=== PATIENT | female | born 1965 | race Caucasian/White ===

== ENCOUNTER 2020-09-16 16:19 | Emergency (ER) | payer OTHER ==
[~2020-09-16] VITALS: Ht 157.5 cm; Wt 93.0 kg
== END 2020-09-16 18:55 | disposition home or self-care (01) ==
LOC: ER 16:19
DX: S52.511A Displaced fracture of right radial styloid process, initial encounter for closed fracture (principal); S49.191A Other physeal fracture of lower end of humerus, right arm, initial encounter for closed fracture; S00.83XA Contusion of other part of head, initial encounter; W18.09XA Striking against other object with subsequent fall, initial encounter; Y93.89 Activity, other specified; Y92.69 Other specified industrial and construction area as the place of occurrence of the external cause; Y99.8 Other external cause status